=== PATIENT | male | born 1980 | race Caucasian/White ===

== ENCOUNTER 2019-11-15 12:21 | Observation (INO) | payer BC, OTHER ==
[2019-11-15] MEDS ORDERED: KETOROLAC 30 MG/ML 1 ML VIAL IVP STA (12:45)
[2019-11-15] MEDS ORDERED: ASPIRIN 81 MG PO STA (12:55)
--- NOTE | 2019-11-15 13:01 | ED ---
Chest Pain HPI - General Chief Complaint: Chest Pain Stated Complaint: Chest pain, L arm numbness Time Seen by Provider: 11/15/19 12:32 Source: patient, RN notes reviewed Mode of arrival: ambulatory Limitations: no limitations - History of Present Illness Initial Comments: This a 39-year-old male presents emergency Department with chief complaint of chest pain. 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 He states his symptoms worsened patient has developed a fever. Denies any URI symptoms. Patient states she has severe pain in his chest but also in his axillary and groin region. He denies any IV drug use no significant past medical history other than a finger amputation. Patient denies any sick contacts. Patient states that his significant other told him that his eye was rolling back when he was sleeping and she was attempting to wake him up. Patient does not remember this. He denies any leg pain, leg swelling. - Related Data Allergies Allergy/AdvReac Type Severity Reaction Status Date / Time No Known Allergies Allergy Verified 11/15/19 12:30 Review of Systems ROS Statement: Those systems with pertinent positive or pertinent negative responses have been documented in the HPI. ROS Other: All systems not noted in ROS Statement are negative. EKG Findings - EKG Comments: EKG Findings:: EKG performed at 12:37 normal sinus rhythm rate of 94 SC 150 QRS 88 QT/QTC 340/425 is noted inverted P waves in V1 and V2, slight ST abnormality noted Past Medical History Past Medical History: No Reported History History of Any Multi-Drug Resistant Organisms: None Reported Past Surgical History: Orthopedic Surgery Additional Past Surgical History / Comment(s): rt 4th finger amputation Past Psychological History: Anxiety Smoking Status: Current every day smoker Past Alcohol Use History: None Reported Past Drug Use History: None Reported General Exam Limitations: no limitations General appearance: alert, in no apparent distress Head exam: Present: atraumatic, normocephalic, normal inspection Eye exam: Present: normal appearance, PERRL, EOMI. Absent: scleral icterus, conjunctival injection, periorbital swelling ENT exam: Present: normal exam, normal oropharynx, mucous membranes moist, TM's normal bilaterally Neck exam: Present: normal inspection, full ROM. Absent: tenderness, meningismus, lymphadenopathy Respiratory exam: Present: normal lung sounds bilaterally. Absent: respiratory distress, wheezes, rales, rhonchi, stridor Cardiovascular Exam: Present: normal rhythm, tachycardia, normal heart sounds, systolic murmur. Absent: diastolic murmur, rubs, gallop, clicks GI/Abdominal exam: Present: soft, normal bowel sounds. Absent: distended, tenderness, guarding, rebound, rigid Neurological exam: Present: alert, oriented X3 Skin exam: Present: warm, dry, intact, normal color. Absent: rash Course Vital Signs 11/15/19 11/15/19 11/15/19 12:24 13:30 13:50 Temperature 101.5 F H 99.0 F Pulse Rate 103 H 82 Respiratory 20 17 Rate Blood Pressure 148/80 127/66 O2 Sat by Pulse 99 98 Oximetry Chest Pain MDM - MDM 39-year-old presented for chest pain , fever. He has no URI symptoms, flu negative chest x-ray shows evidence of atelectasis. Patient does have elevated white count, CRP. I did concerns of possible infection patient will placed on prophylactic antibiotics lovastatin echo and cardiology consult. Disposition Clinical Impression: Chest pain, Fever Disposition: ADMITTED IP TO THIS HOSP Condition: Fair Referrals: Nonstaff,Physician [REFERRING] - 1-2 days
[2019-11-15 13:10] LABS: Basophils # (A) 0.2 k/uL (0-0.2); Basophils % (A) 1 %; Eosinophils % (A) 0 %; HCT 45.2 % (39.0-53.0); HGB 14.9 gm/dL (13.0-17.5); Lymphocytes # (A) 1.4 k/uL (1.0-4.8); Lymphocytes % (A) 8 %; MCH 30.4 pg (25.0-35.0); MCV 92.1 fL (80.0-100.0); Mean Platelet Volume 7.1; Monocytes # (A) 1.1 k/uL (0-1.0); Monocytes % (A) 6 %; Neutrophils # (A) 15.6 k/uL (1.3-7.7); Neutrophils % (A) 84 %; Platelet Count 247 k/uL (150-450); RDW 13.3 % (11.5-15.5); WBC 18.5 k/uL (3.8-10.6)
--- NOTE | 2019-11-15 13:10 | XR ---
EXAMINATION TYPE: XR chest 2V DATE OF EXAM: 11/15/2019 COMPARISON: NONE TECHNIQUE: PA and lateral views submitted. HISTORY: Chest Pain FINDINGS: The lungs are clear and there is no pneumothorax, pleural effusion, or focal pneumonia. Perihilar s ubsegmental linear changes are noted. No pneumothorax. IMPRESSION: 1. Basilar atelectasis favored over pneumonia..
[2019-11-15 13:19] LABS: ALT 18 U/L (4-49); AST 28 U/L (17-59); African American GFR (CKD) >90 (>60 ml/min/1.73 sqM); Albumin 4.5 g/dL (3.5-5.0); Alkaline Phosphatase 88 U/L (38-126); Anion Gap 8 mmol/L; Blood Urea Nitrogen 14 mg/dL (9-20); C Reactive Protein 60.1 mg/L (<10.0); Calcium 9.2 mg/dL (8.4-10.2); Carbon Dioxide 25 mmol/L (22-30); Chloride 105 mmol/L (98-107); Glucose 100 mg/dL (74-99); Non-African American GFR(CKD) >90 (>60 ml/min/1.73 sqM); Potassium 4.1 mmol/L (3.5-5.1); Sodium 138 mmol/L (137-145); Total Bilirubin 0.6 mg/dL (0.2-1.3); Total Protein 7.5 g/dL (6.3-8.2)
[2019-11-15 13:21] LABS: D-Dimer 0.31 mg/L FEU (<0.60); INR 0.9 (<1.2); Partial Thromboplastin Time 24.8 sec (22.0-30.0); Prothrombin Time 9.8 sec (9.0-12.0)
[2019-11-15] MEDS ORDERED: cefTRIAXone IN SWFI 1,000 MG/10 ML SYRINGE IVP STA (13:52)
[2019-11-15] MEDS ORDERED: VANCOMYCIN IV PER PHARMACY 1 EACH MISC MISCELLANE PRN (13:52)
[2019-11-15] MEDS ORDERED: MORPHINE SULFATE 4 MG/ML SYRINGE IVP STA (13:54)
[2019-11-15] MEDS ORDERED: HEPARIN SODIUM,PORCINE 5,000 UNIT/ML 1 ML VIAL IV ONE (13:56)
[2019-11-15] MEDS ORDERED: NITROGLYCERIN SL TABS 0.4 MG TAB SUBLINGUAL PRN (13:56)
[2019-11-15] MEDS ORDERED: HEPARIN SODIUM,PORCINE 5,000 UNIT/ML 1 ML VIAL IV PRN (13:56)
[2019-11-15] MEDS ORDERED: VANCOMYCIN 1,500 MG in SODIUM CHLORIDE 0.9% 250 ML IVPB STA (13:58)
[2019-11-15] MEDS ORDERED: HEPARIN SOD,PORK IN 0.45% NACL 25,000 UNIT in 0.45% NACL 1 250ML.BAG IV SCH (14:00)
[2019-11-15 14:12] LABS: Erythrocyte Sedimentation Rate 7 mm/hr (0-15)
--- NOTE | 2019-11-15 15:36 | P.HPIM ---
History of Present Illness This is a pleasant 59 years old male with past medical history of stroke, anxiety seated smoker. Because of chest pain. Patient was in the hospital but he didn't like its at [place] so he signed himself out. Patient has multiple p roblems, he is complaining of from numbness in his left face and left arm for 2 days duration with no headache or weakness. Also he said he has been covered with the jenny phlegm and pleuritic-like chest pain on the left side, nonradiating felt like dull increased by deep breathing and coughing associated with some dyspnea but no nausea vomiting. Patient also complains from becoming unresponsive for 2 minutes last night while he was talking to his family, his mother found him unresponsive while she was talking to him, he says that his eyes were closed and he could not remember anything until next day when he woke up and has been told by his mother that she was trying to wake him up and sh aking him but he was unresponsive. Patient denies jerking movements, no urine or bowel incontinence, no tongue biting however his mother told him that his eyes rolled up. Also patient was complaining of 422 days of pain in both armpits and both groins Patient smokes about 7-10 cigarettes per day, no alcohol or illicit drugs. Vitas looks stable. Labs showing leukocytosis of 18.5 K, d-dimer is negative at 0.31, BMP is unremarkable. Liver enzymes not elevated, lipase is negative. The frozen is negative. Chest x-ray: Bibasilar atelectasis, less likely pneumonia. EKG showing normal sinus rhythm with no significant ST-T changes. In the emergency room patient got aspirin, Rocephin and IV vancomycin. Patient also was started on heparin drip Review of Systems CONSTITUTIONAL: no malaise, no fatigue. HEENT: No recent visual problems or hearing problems. Denied any sore throat. CARDIOVASCULAR: No orthopnea, PND, no palpitations PULMONARY: no hemoptysis. GASTROINTESTINAL: No diarrhea, no nausea, no vomiting, no abdominal pain. Normoactive bowel sounds. NEUROLOGICAL: No headaches, no weakness HEMATOLOGICAL: Denies any bleeding or petechiae. GENITOURINARY: Denies any burning micturition, frequency, or urgency. MUSCULOSKELETAL/RHEUMATOLOGICAL: Denies any joint pain, swelling, or any muscle pain. ENDOCRINE: Denies any polyuria or polydipsia. Past Medical History Past Medical History: GERD/Reflux Additional Past Medical History / Comment(s): Pt states he has had heat stroke twice, seasonal allergies. 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 Mother Family Medical History: No Reported History Additional Family Medical History / Comment(s): Mother is healthy Medications and Allergies Home Medications Medication Instructions Recorded Confirmed Type Atorvastatin [Lipitor] 10 mg PO HS 11/15/19 11/15/19 History Ibuprofen [Motrin Ib] 800 mg PO Q6H PRN 11/15/19 11/15/19 History Allergies Allergy/AdvReac Type Severity Reaction Status Date / Time No Known Allergies Allergy Verified 11/15/19 14:05 Physical Exam Vitals: Vital Signs Temp Pulse Pulse Resp BP BP Pulse Ox 11/15/19 14:58 98.3 F 68 18 132/60 96 11/15/19 14:30 80 18 118/62 97 11/15/19 14:00 80 16 122/64 98 11/15/19 13:50 99.0 F 11/15/19 13:30 82 17 127/66 98 11/15/19 12:24 101.5 F H 103 H 20 148/80 99 Intake and Output 11/15/19 11/15/19 11/15/19 06:59 14:59 22:59 Other: Weight 79.152 kg GENERAL: The patient is alert and oriented x3, not in any acute distress. Well developed, well nourished. HEENT: Pupils are round and equally reacting to light. EOMI. No scleral icterus. No conjunctival pallor. Normocephalic, atraumatic. No pharyngeal erythema. No thyromegaly. CARDIOVASCULAR: S1 and S2 present. No murmurs, rubs, or gallops. PULMONARY: Chest is clear to auscultation, no wheezing or crackles. ABDOMEN: Soft, nontender, nondistended, normoactive bowel sounds. No palpable organomegaly. -MUSCULOSKELETAL: No joint swelling or deformity. Tenderness in both inguinal hernia and arm parts with no rash or lesions noted EXTREMITIES: No cyanosis, clubbing, or pedal edema. -NEUROLOGICAL: Tenderness are grossly intact, patient has decreased sensation in his left face and left upper extremity. SKIN: No rashes. No petechiae Results CBC & Chem 7: 11/15/19 12:46 11/15/19 12:46 Labs: Abnormal Lab Results - Last 24 Hours (Table) 11/15/19 11/15/19 Range/Units 12:46 12:46 WBC 18.5 H (3.8-10.6) k/uL Neutrophils # 15.6 H (1.3-7.7) k/uL Monocytes # 1.1 H (0-1.0) k/uL Glucose 100 H (74-99) mg/dL C-Reactive Protein 60.1 H (<10.0) mg/L Assessment and Plan Assessment: Bilateral basal atelectasis, versus pneumonia sepsis secondary to above with fever and leukocytosis period Of unresponsive, rule out seizure versus syncope. We'll going to consult cardiology and neurology service Chest pain, rule out cardiac causes Leukocytosis, patient was counseled he does not want nicotine patch Numbness in his left face and left arm Pain in both armpits and groins Nicotine dependence History of anxiety, not active issue. Plan: This is a pleasant 39 years old male who presents because of chest pain and possible pneumonia. Continue serial troponins and EKG, call cardiology consult. Continue with antibiotics. We'll consult pulmonary. Continue with antibiotics and follow-up culture results. Continue with IV hydration. Also I'll consult senior civil engineer. Continue with aspirin. We will order CT of the head. Neuro check. Check echocardiogram. Patient was counseled about she can low that she'll not to drive in case of syncope or seizure Labs and medication were reviewed.. Continue same treatment. Continue with symptomatic treatment. Resume home medication. Monitor lytes and vitals. DVT and GI prophylaxis. Further recommendations of the clinical course of the patient DVT prophylaxis: Subcutaneous heparin GI Prophylaxis: Pepcid PT/OT: Pending Prognosis is guarded
--- NOTE | 2019-11-15 16:32 | CT ---
EXAMINATION TYPE: CT brain wo con DATE OF EXAM: 11/15/2019 COMPARISON: None HISTORY: 39-year-old male numbness in face and left arm TECHNIQUE: Examination was done in axial plane without intravenous contrast. Coronal and sagittal r econstructions performed. CT DLP: 1040.4 mGycm Automated exposure control for dose reduction was used. FINDINGS: There is no evidence of acute intracranial hemorrhage, acute ischemic changes, mass, mass-effect, or extra-axial fluid collection. There is no effacement of cerebral sulci or basal subarachnoid cister ns. There is no hydrocephalus. There is no midline shift. Zavaleta-white matter distinction is preserv ed. Paranasal sinuses and mastoid air cells are well pneumatized. Visualized orbits and globes appear int act. IMPRESSION: No acute intracranial abnormality seen.
[2019-11-15] MEDS: SODIUM CHLORIDE 0.9% 1,000 ML IV SCH (16:57)
[2019-11-15] MEDS: MORPHINE SULFATE 2 MG/ML SYRINGE IVP PRN ×2 (16:58→20:42)
--- NOTE | 2019-11-15 18:35 | P.CNNES ---
History of Present Illness Consult date: 11/15/19 Requesting physician: Mukul E Sheet Reason for Consult: Numbness in face and arm and possible syncope History of Present Illness: Patient is a 39-year-old male, who is otherwise completely healthy, states that 3 days ago he developed numbness in the left side of the face, and the left arm. He also noticed decreased special services director on the left. Denies any symptoms in the lower extremities on the right upper limb. No slurred speech or problem with the vision. He went to [facility], where he stayed for 2-1/2 days. Patient states that they did not do much testing except for "pumping medications". He signed out again medical advice, went home. Last night he started having pain in bilateral axillary region, almost as if someone has stuck fingers in his armpit and trying to lift him up. He also has developed pain in the left groin region, almost as if the lymph glands are swollen although there is nothing visible. No rash. Patient also had a syncopal spell last night, when he was sleeping at around 2 AM, his heard him moaning. She tried to wake him up, but his eyes rolled up in his head and he was unresponsive for about 30 seconds. When she asked, if he was fine, he said he was, although he does not remember any of this episode or conversation last night. This morning patient has developed fever. His felt that his heart was pounding really bad last night. Patient also complains of pain in the lower thoracic spine region since yesterday. Patient smokes 7-10 cigarettes per day since he was age 15. Denies any alcohol or drugs. Denies any marijuana. 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 Patient had undergone computed tomography scan of the head, which is normal. EKG showed normal sinus rhythm. Chest x-ray showed basilar atelectasis favored over pneumonia. Patient has a flu test negative. Patient denies any travel outside country, tick bite, rash or cat scratch. Review of Systems As mentioned above in detail. Past Medical History Past Medical History: GERD/Reflux Additional Past Medical History / Comment(s): Pt states he has had heat stroke twice, seasonal allergies. 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 Mother Family Medical History: No Reported History Additional Family Medical History / Comment(s): Mother is healthy Medications and Allergies Home Medications Medication Instructions Recorded Confirmed Type Atorvastatin [Lipitor] 10 mg PO HS 11/15/19 11/15/19 History Ibuprofen [Motrin Ib] 800 mg PO Q6H PRN 11/15/19 11/15/19 History Allergies Allergy/AdvReac Type Severity Reaction Status Date / Time No Known Allergies Allergy Verified 11/15/19 14:05 Physical Examination - Vital Signs Vital Signs: Vital Signs Temp Pulse Pulse Resp BP BP Pulse Ox 11/15/19 14:58 98.3 F 68 18 132/60 96 11/15/19 14:30 80 18 118/62 97 11/15/19 14:00 80 16 122/64 98 11/15/19 13:50 99.0 F 11/15/19 13:30 82 17 127/66 98 11/15/19 12:24 101.5 F H 103 H 20 148/80 99 Intake and Output 11/15/19 11/15/19 11/15/19 06:59 14:59 22:59 Intake Total 420 Balance 420 Intake: Oral 420 Other: Voiding Method Toilet Weight 79.152 kg On examination patient's mental status, speech and language functions are normal. Attention and concentration fund of knowledge is adequate. On cranial examination pupils are round and reacting to light, visual roberts are full on confrontation, extraocular muscles intact. No Jhonathan syndrome. Face is symmetric, tongue protrudes the midline. Palatal elevation and sensation normal. On muscle strength testing, there is no pronator drift and the strength is normal in the arms and legs except for left special services director, which is 4+ as compared to the right. He has previously amputated right little finger from previous work- related accident. Reflexes are 2+ and plantars downgoing. Sensory touch is equal, although patient appears to be very hypersensitive in bilateral axillary region, and groin region. No ataxia for [id number] testing. Tone and bulk of muscles normal. Palpation of the axillary region was extremely tender, but revealed no obvious lumps, but the exam was limited because of tenderness. Gait normal. No carotid bruit or murmur. Results - Laboratory Findings CBC and BMP: 11/15/19 12:46 11/15/19 12:46 Abnormal Lab Findings: Abnormal Labs 11/15/19 11/15/19 12:46 12:46 WBC 18.5 H Neutrophils # 15.6 H Monocytes # 1.1 H Glucose 100 H C-Reactive Protein 60.1 H Assessment and Plan Assessment: * 39-year-old male with left facial brachial paresthesia with left hand weakness of unclear etiology. Rule out demyelinating disease. * New onset hypersensitivity and pain in the bilateral axillary and groin region, unclear etiology. Patient also has leukocytosis and fever 101.5. Possible infectious/inflammatory process. * Syncopal spell Plan: * We will perform MRI of the brain with and without contrast to rule out CVA or demyelinating disease. * EEG to rule out any epileptiform activity. * Suggest infectious disease consultation. * Agree with the cardiology consultation. * Blood cultures pending. Patient started on vancomycin. * Neurology will continue to follow.
[2019-11-15] MEDS ORDERED: ATORVASTATIN 10 MG TAB PO SCH (21:00)
[2019-11-15] MEDS ORDERED: IBUPROFEN 800 MG TAB PO STA (21:49)
[2019-11-16] MEDS: MORPHINE SULFATE 2 MG/ML SYRINGE IVP PRN ×2 (00:26→05:45)
[2019-11-16] MEDS: VANCOMYCIN 1,500 MG in SODIUM CHLORIDE 0.9% 250 ML IVPB SCH ×4 (00:26→22:54)
[2019-11-16 03:50] LABS: Basophils # (A) 0.1 k/uL (0-0.2); Basophils % (A) 1 %; Eosinophils # (A) 0.3 k/uL (0-0.7); Eosinophils % (A) 3 %; HCT 41.4 % (39.0-53.0); HGB 13.8 gm/dL (13.0-17.5); Lymphocytes % (A) 25 %; MCH 31.1 pg (25.0-35.0); MCHC 33.4 g/dL (31.0-37.0); MCV 93.2 fL (80.0-100.0); Mean Platelet Volume 6.7; Monocytes # (A) 0.8 k/uL (0-1.0); Monocytes % (A) 7 %; Neutrophils # (A) 7.6 k/uL (1.3-7.7); Neutrophils % (A) 63 %; Platelet Count 240 k/uL (150-450); RBC 4.44 m/uL (4.30-5.90); RDW 13.3 % (11.5-15.5); WBC 12.2 k/uL (3.8-10.6)
[2019-11-16 03:58] LABS: African American GFR (CKD) >90 (>60 ml/min/1.73 sqM); Anion Gap 5 mmol/L; Blood Urea Nitrogen 15 mg/dL (9-20); Calcium 8.4 mg/dL (8.4-10.2); Carbon Dioxide 27 mmol/L (22-30); Chloride 107 mmol/L (98-107); Cholesterol 145 mg/dL (<200); Glucose 127 mg/dL (74-99); HDL Cholesterol 47 mg/dL (40-60); LDL Cholesterol,Calculated 67 mg/dL (0-99); Non-African American GFR(CKD) >90 (>60 ml/min/1.73 sqM); Sodium 139 mmol/L (137-145); Triglycerides 154 mg/dL (<150)
[2019-11-16] MEDS: SODIUM CHLORIDE 0.9% 1,000 ML IV SCH ×2 (04:07→19:00)
[2019-11-16] MEDS ORDERED: ASPIRIN 325 MG TAB PO SCH (09:00)
--- NOTE | 2019-11-16 11:28 | ECHOF ---
Referral Reason:Chest pain MEASUREMENTS -------- HEIGHT: 182.9 cm WEIGHT: 74.4 kg BP: RVIDd: 3.1 cm (< 3.3) IVSd: 1.2 cm (0.6 - 1.1) LVIDd: 4.1 cm (3.9 - 5.3) LVPWd: 1.1 cm (0.6 - 1.1) IVSs: 1.6 cm LVIDs: 2.4 cm LVPWs: 1.9 cm LA Diam: 3.1 cm (2.7 - 3.8) LAESV Index (A-L): 19.49 ml/m Ao Diam: 3.0 cm (2.0 - 3.7) AV Cusp: 1.8 cm (1.5 - 2.6) LA Diam: 3.3 cm (2.7 - 3.8) MV EXCURSION: 18.829 mm (> 18.000) MV EF SLOPE: 96 mm/s (70 - 150) EPSS: 0.3 cm MV E Ang: 0.86 m/s MV DecT: 274 ms MV A Ang: 0.53 m/s MV E/A Ratio: 1.62 RAP: 5.00 mmHg RVSP: 28.31 mmHg FINDINGS -------- Sinus rhythm. This was a technically good study. The left ventricular size is normal. There is mild concentric left ventricular hypertrophy. Overa ll left ventricular systolic function is normal with, an EF between 55 - 60 %. The right ventricle is normal in size. The left atrial size is normal. Normal LA size by volume 22+/-6 ml/m2. The right atrial size is normal. The aortic valve is trileaflet, and appears structurally normal. No aortic stenosis or regurgitation. Mild mitral annular calcification present. Mild mitral regurgitation is present. Mild tricuspid regurgitation present. Right ventricular systolic pressure is normal at < 35 mmHg. There is no evidence of pulmonary hypertension. There is no pulmonic regurgitation present. The aortic root size is normal. There is no pericardial effusion. CONCLUSIONS -------- 1. Sinus rhythm. 2. This was a technically good study. 3. The left ventricular size is normal. 4. There is mild concentric left ventricular hypertrophy. 5. Overall left ventricular systolic function is normal with, an EF between 55 - 60 %. 6. The right ventricle is normal in size. 7. The left atrial size is normal. 8. Normal LA size by volume 22+/-6 ml/m2. 9. The right atrial size is normal. 10. The aortic valve is trileaflet, and appears structurally normal. No aortic stenosis or regurgitat ion. 11. Mild mitral annular calcification present. 12. Mild mitral regurgitation is present. 13. Mild tricuspid regurgitation present. 14. Right ventricular systolic pressure is normal at < 35 mmHg. 15. There is no evidence of pulmonary hypertension. 16. There is no pulmonic regurgitation present. 17. The aortic root size is normal. 18. There is no pericardial effusion. COUNCIL MEMBER: Nazanin Arredondo RDCS
--- NOTE | 2019-11-16 11:31 | P.CRDCN ---
History of Present Illness History of present illness: HISTORY OF PRESENTING ILLNESS This is a pleasant 39-year-old male past medical history significant for chronic nicotine dependence. He denies prior history of coronary artery disease, hypertension or dyslipidemia. He states he was recently started on lipitor for unknown reason and has not yet taken this medication. We have been asked to see in consultation for chest pain. He presented to the hospital yesterday with symptoms of pain in the chest on the left side. He has been e xperiencing this pain for the last 3-4 days that is worse with breathing at times. He has radiation down the left arm and into the left cheek. He states his left arm and face are numb and continue to be numb. He denies shortness of breath, dizziness, nausea, vomiting or palpitations. He denies nasal drainage, throat pain or recent upper respiratory illness. He also was seen at [facility] for this pain but left AMA. When he presented to the ER he had a temperature of 101.5F. His pain is relieved by morphine and motrin. DIAGNOSTICS EKG reveals sinus mechanism, left atrial enlargement and poor R-wave progression. Chest xray basilar atelectasis. CT brain no acute intracranial process. Laboratory reviewed, WBC on admission 18.5 repeat today 12.2, hgb 13.8. plt 240, d-dimer 0.31, sodium 139, potassium 4.0, creatinine 0.83, cardiac enzymes negative x3, CRP 60.1, NTproBNP 88, LDL 67, procalcitonin 0.1. No daily REVIEW OF SYSTEMS At the time of my exam: CONSTITUTIONAL: Denies fever or chills. CARDIOVASCULAR: Denies chest pain, shortness of breath, orthopnea, PND or palpitations. RESPIRATORY: Denies cough. GASTROINTESTINAL: Denies abdominal pain, diarrhea, constipation, nausea or vomiting. MUSCULOSKELETAL: Denies myalgias. NEUROLOGIC: Denies numbness, tingling or weakness. ENDOCRINE: Denies fatigue, weight change, polydipsia or polyurina. GENITOURINARY: Denies burning, hematuria or urgency with micturation. HEMATOLOGIC: Denies history of anemia or bleeding. PHYSICAL EXAMINATION Blood pressure 110/63 heart rate 57 afebrile and maintaining oxygen saturation on room air. CONSTITUTIONAL: No apparent distress. HEENT: Head is normocephalic. Pupils are equal, round. Sclerae anicteric. Mucous membranes of the mouth are moist. No JVD. No carotid bruit. CHEST EXAMINATION: Lungs are clear to auscultation. No chest wall tenderness is noted on palpation or with deep breathing. HEART EXAMINATION: Regular rate and rhythm. S1, S2 heard. No murmurs, gallops or rub. ABDOMEN: Soft, nontender. Positive bowel sounds. EXTREMITIES: 2+ peripheral pulses, no lower extremity edema and no calf tenderness. NEUROLOGIC EXAMINATION: Patient is awake, alert and oriented x3. ASSESSMENT Chest pain, pleuritic. Atypical for angina. An acute event has been ruled out. Febrile illness Leukocytosis PLAN Discontinue heparin infusion. Recommend ibuprofen 400 mg TID with daily protonix. Echocardiogram has been obtained and will be reviewed for evidence of pericarditis/pericardial effusion. Recommend blood cultures and consider infectious disease consultation. Smoking cessation recommended. Discontinue atorvastatin. Thank you kindly for this consultation. Nurse Practitioner note has been reviewed, I agree with a documented findings and plan of care. Patient was seen and examined. Past Medical History Past Medical History: GERD/Reflux Additional Past Medical History / Comment(s): Pt states he has had heat stroke twice, seasonal allergies. 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 Mother Family Medical History: No Reported History Additional Family Medical History / Comment(s): Mother is healthy Medications and Allergies Home Medications Medication Instructions Recorded Confirmed Type Atorvastatin [Lipitor] 10 mg PO HS 11/15/19 11/15/19 History Ibuprofen [Motrin Ib] 800 mg PO Q6H PRN 11/15/19 11/15/19 History Allergies Allergy/AdvReac Type Severity Reaction Status Date / Time No Known Allergies Allergy Verified 11/15/19 14:05 Physical Exam Vitals: Vital Signs Temp Pulse Pulse Pulse Resp BP BP 11/16/19 07:20 97.3 F L 57 L 18 110/63 11/16/19 03:56 97.9 F 59 L 16 109/65 11/15/19 23:27 98.5 F 97 17 134/72 11/15/19 19:10 98.7 F 73 17 103/62 11/15/19 14:58 98.3 F 68 18 132/60 11/15/19 14:30 80 18 118/62 11/15/19 14:00 80 16 122/64 11/15/19 13:50 99.0 F 11/15/19 13:30 82 17 127/66 11/15/19 12:24 101.5 F H 103 H 20 148/80 Pulse Ox 11/16/19 07:20 98 11/16/19 03:56 98 11/15/19 23:27 98 11/15/19 19:10 98 11/15/19 14:58 96 11/15/19 14:30 97 11/15/19 14:00 98 11/15/19 13:50 11/15/19 13:30 98 11/15/19 12:24 99 Intake and Output 11/15/19 11/16/19 11/16/19 22:59 06:59 14:59 Intake Total 487.911 Balance 487.911 Intake: Intake, IV Titration 67.911 Amount Heparin Sod,Pork in 0.45% 67.911 NaCl 25,000 unit In 0.45 % NaCl 1 250ml.bag @ 12 UNITS/KG/HR 9.498 mls/hr IV .Q24H [facility] Rx#: [id number] Oral 420 Other: Voiding Method Toilet Toilet # Voids 1 1 Results 11/16/19 03:22 11/16/19 03:22 Cardiac Enzymes 11/15/19 11/15/19 11/15/19 Range/Units 12:46 12:46 19:57 AST 28 (17-59) U/L Troponin I <0.012 <0.012 (0.000-0.034) ng/mL 11/16/19 Range/Units 00:33 AST (17-59) U/L Troponin I <0.012 (0.000-0.034) ng/mL Coagulation 11/15/19 11/15/19 11/16/19 Range/Units 12:46 19:57 03:22 PT 9.8 (9.0-12.0) sec APTT 24.8 30.1 H 51.2 H (22.0-30.0) sec Lipids 11/16/19 Range/Units 03:22 Triglycerides 154 H (<150) mg/dL Cholesterol 145 (<200) mg/dL HDL Cholesterol 47 (40-60) mg/dL CBC 11/15/19 11/16/19 Range/Units 12:46 03:22 WBC 18.5 H 12.2 H (3.8-10.6) k/uL RBC 4.90 4.44 (4.30-5.90) m/uL Hgb 14.9 13.8 (13.0-17.5) gm/dL Hct 45.2 41.4 (39.0-53.0) % Plt Count 247 240 (150-450) k/uL Comprehensive Metabolic Panel 11/15/19 11/16/19 Range/Units 12:46 03:22 Sodium 138 139 (137-145) mmol/L Potassium 4.1 4.0 (3.5-5.1) mmol/L Chloride 105 107 (98-107) mmol/L Carbon Dioxide 25 27 (22-30) mmol/L BUN 14 15 (9-20) mg/dL Creatinine 0.93 0.83 (0.66-1.25) mg/dL Glucose 100 H 127 H (74-99) mg/dL Calcium 9.2 8.4 (8.4-10.2) mg/dL AST 28 (17-59) U/L ALT 18 (4-49) U/L Alkaline Phosphatase 88 (38-126) U/L Total Protein 7.5 (6.3-8.2) g/dL Albumin 4.5 (3.5-5.0) g/dL Current Medications Generic Name Dose Route Start Last Admin Trade Name Freq PRN Reason Stop Dose Admin Aspirin 325 mg 11/16/19 09:00 Aspirin PO DAILY [facility] Atorvastatin Calcium 10 mg 11/15/19 21:00 11/15/19 20:44 Lipitor PO Not Given HS [facility] Heparin Sodium (Porcine) 0 unit 11/15/19 13:56 11/15/19 21:45 Heparin IV 3,950 unit Q6HR PRN Administration Low PTT Protocol Heparin Sodium/Sodium Chloride 250 mls @ 9.498 mls/hr 11/15/19 14:00 11/15/19 21:39 25,000 unit/ Sodium Chloride IV 15 units/kg/hr .Q24H [facility] 11.873 mls/hr Titration Protocol 12 UNITS/KG/HR Vancomycin HCl 1,500 mg/ 250 mls @ 125 mls/hr 11/16/19 00:00 11/16/19 00:26 Sodium Chloride IVPB 125 mls/hr Q8HR [facility] Administration Sodium Chloride 1,000 mls @ 75 mls/hr 11/15/19 15:30 11/16/19 04:07 Saline 0.9% IV 75 mls/hr .[id number] [facility] Administration Ceftriaxone Sodium 1 gm/ 50 mls @ 100 mls/hr 11/16/19 14:00 Sodium Chloride IVPB Q24H [facility] Morphine Sulfate 2 mg 11/15/19 16:47 11/16/19 05:45 Morphine Sulfate (Inj) IVP 2 mg Q4H PRN Administration Pain/Discomfort Nitroglycerin 0.4 mg 11/15/19 13:56 Nitrostat SUBLINGUAL Q5M PRN Chest Pain Intake and Output 11/15/19 11/16/19 11/16/19 22:59 06:59 14:59 Intake Total 487.911 Balance 487.911 Intake: Intake, IV Titration 67.911 Amount Heparin Sod,Pork in 0.45% 67.911 NaCl 25,000 unit In 0.45 % NaCl 1 250ml.bag @ 12 UNITS/KG/HR 9.498 mls/hr IV .Q24H [facility] Rx#: [id number] Oral 420 Other: Voiding Method Toilet Toilet # Voids 1 1 11/16/19 03:22 11/16/19 03:22
--- NOTE | 2019-11-16 11:36 | MR ---
EXAMINATION TYPE: MR brain wo/w con DATE OF EXAM: 11/16/2019 COMPARISON: CT brain from yesterday. HISTORY: Left facial brachial numbness and facial numbness, Syncope TECHNIQUE: Multiplanar, multisequence images of the brain and brainstem is performed without and with IV contras t, utilizing 7.5 mL intravenous Gadavist . FINDINGS: Diffusion weighted images demonstrate no evidence of a recent infarct or other diffusion ab normality. There is no worrisome extra-axial fluid collection. The ventricular system and cisternal spaces are normal in size and appearance. The brain volume is age appropriate. Scattered foci of T2 hyperintensity is seen throughout the white matter bilaterally. Approximately 20-30 small scattered lesions are seen. Lesions most prominent in the superficial regions. Lesions are nonspecific in appea yessy and distribution. Midline structures demonstrate normal morphology. The craniocervical junction appears within normal limits. Post contrast images demonstrate no abnormal enhancement. The dural venous sinuses appear pa tent. The visualized sinuses are clear and the globes are intact. IMPRESSION: 1. No evidence of a recent infarct. 2. [id number]-rl-[id number] nonspecific white matter changes somewhat pronounced for patient's chronologic ag e. Demyelinating disease needs to be excluded in patient of this age though distribution is not typic al.
[2019-11-16] MEDS: IBUPROFEN 400 MG TAB PO SCH ×3 (11:38→19:56)
[2019-11-16] MEDS: PANTOPRAZOLE 40 MG TABLET PO SCH ×2 (11:39→18:06)
--- NOTE | 2019-11-16 11:49 | P.CNPUL ---
History of Present Illness Consult date: 11/16/19 Reason for consult: dyspnea, chest pain, other Chief complaint: Left-sided chest and axillary numbness and paresthesia, fever History of present illness: 39-year-old white male patient who was recently hospitalized at [facility] 3-4 days ago for complaints of left-sided chest pain, paresthesias, left facial numbness, and numbness and paresthesias involving left arm. The results of their workup is not available to us at this time, but patient was frustrated that it was taking too long for him to be seen by cardiology, he felt that he was just getting medications and not much was being done there so he left AGAINST MEDICAL ADVICE. The night before yesterday patient apparently was sleeping at home, and his heard him making strange noises, she tried to wake him but he wouldn't wake up and his eyes were rolled in the back of his head for a period of 30 seconds, to which he started responding again, but he continued to have left-sided chest numbness, facial numbness on the left side neck numbness, discomfort in his bilateral axillary areas, groin. He describes the discomfort as numbness, needle poking-type sensation. He admitted to having some chills at home, but denied any cough, denied any congestion, was febrile on presentation with a temp of 101.5F, for the rest of his hospital stay he has been afebrile. His lungs are clear, his chest x-ray showed basilar atelectasis favored over pneumonia. On initial presentation patient did have elevation of his white count at 18.5, hemoglobin was 14.9, correlation profile was within normal limits, d-dimer was negative at 0.31, electrolytes and renal profile were unremarkable, proBNP is 88, through troponins were less than 0.012, pro calcitonin level is negative at 0.10 resting absence of a bacterial infection, lipase and LFTs are within normal limits, influenza screen was negative. Brain CT was negative, neurology is following. He was started on empiric antibiotics in the form of Rocephin and vancomycin, he is receiving Motrin, and morphine for pain control, he seems to be quite comfortable at rest, no evidence of respira tory difficulty, his been afebrile, lung sounds are clear, he is a current smoker, 7 a pack a day, for 25 years, but denies any history of chronic lung disease, other medical history includes anxiety for which the patient is on Ativan. Patient gives history of family history of sarcoma, and patient's father had a cardiac sarcoma tumor that was surgically resected. Patient's aunt or uncle also have history of sarcoma of unknown kind. The vital signs are stable, pulse ox is 100% on room air, patient is afebrile, hemodynamically stable. Review of Systems All systems: negative Constitutional: Denies chills, Denies fever Eyes: denies blurred vision, denies pain Ears, nose, mouth and throat: Denies headache, Denies sore throat Cardiovascular: Reports chest pain, Denies shortness of breath Respiratory: Reports dyspnea, Denies cough Gastrointestinal: Denies abdominal pain, Denies diarrhea, Denies nausea, Denies vomiting Musculoskeletal: Denies myalgias Integumentary: Denies pruritus, Denies rash Neurological: Reports numbness, Reports paresthesias, Denies weakness Psychiatric: Denies anxiety, Denies depression Endocrine: Denies fatigue, Denies weight change Past Medical History Past Medical History: GERD/Reflux Additional Past Medical History / Comment(s): Pt states he has had heat stroke twice, seasonal allergies. 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 Mother Family Medical History: No Reported History Additional Family Medical History / Comment(s): Mother is healthy Medications and Allergies Home Medications Medication Instructions Recorded Confirmed Type Atorvastatin [Lipitor] 10 mg PO HS 11/15/19 11/15/19 History Ibuprofen [Motrin Ib] 800 mg PO Q6H PRN 11/15/19 11/15/19 History Allergies Allergy/AdvReac Type Severity Reaction Status Date / Time No Known Allergies Allergy Verified 11/15/19 14:05 Physical Exam Vitals: Vital Signs Temp Pulse Pulse Pulse Resp BP BP 11/16/19 08:00 59 L 57 L 18 11/16/19 07:20 97.3 F L 57 L 18 110/63 11/16/19 03:56 97.9 F 59 L 16 109/65 11/15/19 23:27 98.5 F 97 17 134/72 11/15/19 19:10 98.7 F 73 17 103/62 11/15/19 14:58 98.3 F 68 18 132/60 11/15/19 14:30 80 18 118/62 11/15/19 14:00 80 16 122/64 11/15/19 13:50 99.0 F 11/15/19 13:30 82 17 127/66 11/15/19 12:24 101.5 F H 103 H 20 148/80 Pulse Ox 11/16/19 08:00 11/16/19 07:20 98 11/16/19 03:56 98 11/15/19 23:27 98 11/15/19 19:10 98 11/15/19 14:58 96 11/15/19 14:30 97 11/15/19 14:00 98 11/15/19 13:50 11/15/19 13:30 98 11/15/19 12:24 99 Intake and Output 11/15/19 11/16/19 11/16/19 22:59 06:59 14:59 Intake Total 487.911 Balance 487.911 Intake: Intake, IV Titration 67.911 Amount Heparin Sod,Pork in 0.45% 67.911 NaCl 25,000 unit In 0.45 % NaCl 1 250ml.bag @ 12 UNITS/KG/HR 9.498 mls/hr IV .Q24H [facility] Rx#: [id number] Oral 420 Other: Voiding Method Toilet Toilet Toilet # Voids 1 1 GENERAL EXAM: Alert, very pleasant 39-year-old white male, with a regular pulse oximetry 100%, comfortable in no apparent distress. HEAD: Normocephalic/atraumatic. EYES: Normal reaction of pupils, equal size. Conjunctiva pink, sclera white. NOSE: Clear with pink turbinates. THROAT: No erythema or exudates. NECK: No masses, no JVD, no thyroid enlargement, no adenopathy. CHEST: No chest wall deformity. Symmetrical expansion. LUNGS: Equal air entry with no crackles, wheeze, rhonchi or dullness. CVS: Regular rate and rhythm, normal S1 and S2, no gallops, no murmurs, no rubs ABDOMEN: Soft, nontender. No hepatosplenomegaly, normal bowel sounds, no guarding or rigidity. EXTREMITIES: No clubbing, no edema, no cyanosis, 2+ pulses and upper and lower extremities. MUSCULOSKELETAL: Muscle strength and tone normal. SPINE: No scoliosis or deformity SKIN: No rashes CENTRAL NERVOUS SYSTEM: Alert and oriented -3. tone is normal in all 4 extremities. Patient is complaining of numbness, and paresthesias involving left chest, left axillary area, left arm and left neck area PSYCHIATRIC: Alert and oriented -3. Appropriate affect. Intact judgment and insight. Results - Laboratory Findings CBC and BMP: 11/16/19 03:22 11/16/19 03:22 PT/INR, D-dimer PT 9.8 sec (9.0-12.0) 11/15/19 12:46 INR 0.9 (<1.2) 11/15/19 12:46 D-Dimer 0.31 mg/L FEU (<0.60) 11/15/19 12:46 Abnormal lab findings: Abnormal Labs 11/15/19 11/15/19 11/15/19 12:46 12:46 12:46 WBC 18.5 H Neutrophils # 15.6 H Monocytes # 1.1 H APTT Glucose 100 H C-Reactive Protein 60.1 H Triglycerides Procalcitonin 0.10 H 11/15/19 11/16/19 11/16/19 19:57 03:22 03:22 WBC 12.2 H Neutrophils # Monocytes # APTT 30.1 H Glucose 127 H C-Reactive Protein Triglycerides 154 H Procalcitonin 11/16/19 03:22 WBC Neutrophils # Monocytes # APTT 51.2 H Glucose C-Reactive Protein Triglycerides Procalcitonin - Diagnostic Findings Chest x-ray: report reviewed, image reviewed Additional studies: EKG, brain CT, echocardiogram Assessment and Plan Plan: Assessment: #1. Numbness paresthesias involving left face, left neck, left chest and left axillary left arm area of unknown etiology #2. Febrile illness of unknown etiology, chest x-ray showed atelectasis favored over pneumonia and pro-calcitonin level is low at 0.10 #3. Recent hospitalization 4 days ago at [facility] for the same symptoms mentioned above and patient left AMA #4. Chronic nicotine dependence, half a pack a day for 25 years #5. Anxiety Plan: Patient still has left chest pain paresthesias and numbness, as well as his left neck, left arm and left axillary area. No cough, no congestion, no hemoptysis, no lower extremity swelling, d-dimer was negative, pro-calcitonin is negative,he has been afebrile, patient continues on empiric antibiotics, blood cultures sent. Echocardiogram has been reviewed, patient has been seen by cardiology and neurology, MRI of the brains pending, chest x-ray showed atelectasis favored over pneumonia, no cough, no wheezing, no upper respiratory symptoms. Patient is receiving Toradol, and narcotics for his chest pain with effect. I performed a history & physical examination of the patient and discussed their management with my nurse practitioner, Trina Moreau. I reviewed the nurse practitioner's note and agree with the documented findings and plan of care. Lung sounds are positive for clear breath sounds. The findings and the impression was discussed with the patient. I attest to the documentation by the nurse practitioner. Time with Patient: Greater than 30
--- NOTE | 2019-11-16 16:26 | EEG ---
ELECTROENCEPHALOGRAM REPORT DATE OF SERVICE: 11/16/2019. PREAMBLE: This is a 39-year-old male with syncope versus seizure. EEG FINDINGS: A routine 21-channel awake digital EEG recording was accomplished utilizing the 10/20 international system with bipolar and referential montages. The background consists of well developed, well regulated, moderate-voltage activity in 9 Hz alpha. Background is posterior-dominant and reactive to eye opening and closing. Photic driving response was not seen. Drowsiness was seen with appearance of bilaterally symmetric theta frequency rhythm. Deeper stages of sleep were not seen. No focal or generalized epileptiform activity was seen. IMPRESSION: This is a normal awake and drowsy EEG. No focal lateralized or epileptiform activity was seen. MMODL / IJN: [id number] /
--- NOTE | 2019-11-16 17:01 | P.PN ---
Subjective Progress Note Date: 11/16/19 Patient states he is feeling much better. Denies any new neurological symptoms. He continues to have numbness of the left facial brachial region. States the pain in the axillary region bilaterally and right groin region have much improved. He rates his pain about 6 in the right axillary region, 3-4 in the left axillary region and 5 in the right groin region. Strength of the left hand has improved. Patient has been started on vancomycin. He is now afebrile and white cells are improving. Patient's ESR is normal 7, CRP elevated 60.1/10. Troponin negative. Liver panel normal renal functions normal. Electrolytes normal. White cells has improved 12.2 with hemoglobin 13.8. CK is normal 88. Objective - Vital Signs Vital signs: Vital Signs Temp 98.2 F 11/16/19 16:00 Pulse 76 11/16/19 16:00 Resp 18 11/16/19 16:00 BP 133/74 11/16/19 16:00 Pulse Ox 98 11/16/19 16:00 Intake & Output 11/15/19 11/16/19 11/16/19 18:59 06:59 18:59 Intake Total 420 67.911 Balance 420 67.911 Weight 79.152 kg Intake: Intake, IV Titration 67.911 Amount Heparin Sod,Pork in 0.45% 67.911 NaCl 25,000 unit In 0.45 % NaCl 1 250ml.bag @ 12 UNITS/KG/HR 9.498 mls/hr IV .Q24H [facility] Rx#: [id number] Oral 420 Other: Voiding Method Toilet Toilet Toilet # Voids 1 3 - Exam Patient's mental status, speech and language functions are normal. Cranial nerves are significant for only left facial numbness for touch and temperature. 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 Rest of the motor examination is normal. Reflexes are 1+ to 2 and plantars downgoing. Patient has numbness of the left arm from the fingertips up to the shoulder. The sensation is normal in the chest region for touch and temperature. No ataxia. - Labs CBC & Chem 7: 11/16/19 03:22 11/16/19 03:22 Labs: Abnormal Lab Results - Last 24 Hours (Table) 11/15/19 11/15/19 11/16/19 Range/Units 12:46 19:57 03:22 WBC 12.2 H (3.8-10.6) k/uL APTT 30.1 H (22.0-30.0) sec Glucose (74-99) mg/dL Triglycerides (<150) mg/dL Procalcitonin 0.10 H (0.02-0.09) ng/mL 11/16/19 11/16/19 Range/Units 03:22 03:22 WBC (3.8-10.6) k/uL APTT 51.2 H (22.0-30.0) sec Glucose 127 H (74-99) mg/dL Triglycerides 154 H (<150) mg/dL Procalcitonin (0.02-0.09) ng/mL Microbiology - Last 24 Hours (Table) 11/15/19 12:46 Blood Culture - Preliminary Blood No Growth after 24 hours Assessment and Plan Assessment: * 39-year-old male with left facial brachial numbness with left hand weakness of unclear etiology. Rule out demyelinating disease. Rule out ADEM. * New onset hypersensitivity and pain in the bilateral axillary and groin region, unclear etiology. Patient also has leukocytosis and fever 101.5 at presentation. Possible infectious/inflammatory process. * Syncopal spell Plan: * MRI of the brain with and without contrast revealed no acute infarct. Mild to moderate nonspecific white matter changes somewhat pronounced for patient's chronological age. Demyelinating disease needs to be excluded in the patient of this age, though distribution is not typical. * EEG was normal with no epileptiform activity. * Await infectious disease consultation. * We will check CHEO, RPR, antiphospholipid antibodies, lupus anticoagulants, Lyme titer, angiotensin I converting enzyme level, HIV. * Neurology coverage is not available on the weekend. If patient is discharged, then patient definitely needs to be seen by neurologist within 1-2 weeks. Patient may need repeat MRI of the brain to make sure the white matter lesions are not progressing or developing ADEM.
--- NOTE | 2019-11-16 17:41 | CONS ---
CONSULTATION DATE OF SERVICE: 11/16/2019 REASON FOR CONSULTATION: Fever. HISTORY OF PRESENT ILLNESS: The patient is a 39-year-old male who presented to the ER at [facility] yesterday with the chief complaint of chest pain. The patient apparently was evaluated for the same symptom last week at [facility], and the patient apparently left AGAINST MEDICAL ADVICE. The patient said that when the chest pain started, he was not doing anything; it was more of a sudden onset of left- sided chest pain. He was describing it to be sharp and almost 10/10 with associated numbness to the left side of the face and the left arm. The patient denies having any nausea, no vomiting. No shortness of breath associated with it. No cough or any sputum production. No abdominal pain. No diarrhea or any urinary symptoms. With these symptoms, the patient presented to the [facility] ER yesterday. The patient did have a chest x-ray initially that shows basilar atelectasis favored or pneumonia. The patient did have an echocardiogram that was reported negative for any effusion. The patient did have a fever of 101.5 degrees Fahrenheit on presentation to the hospital. However, the patient was not tachycardic. The patient's blood work did show a hemoglobin of 14.9, white count 18.5, which is down to 12.2 this morning. His creatinine was normal and his liver enzymes were normal. Lactic acid was 0.9. The patient did have elevated CRP, though sedimentation rate was normal. Procalcitonin level was 0.10. Blood culture has been obtained which is currently pending. The patient has been started on vancomycin and Rocephin. I was asked to see the patient this afternoon for further management of underlying fever and need for antibiotic therapy. The patient did mention overall improvement in his chest pain; it is down to about 3/10 compared to 10/10 when he presented. REVIEW OF SYSTEMS: Positive points have been mentioned in HPI. Rest of the systems are negative. PAST MEDICAL HISTORY: Anxiety. No other chronic illnesses. PAST SURGICAL HISTORY: Right fourth finger amputation. SOCIAL HISTORY: The patient is currently an everyday smoker. The patient denies any new sexual partners and no family members are sick. FAMILY HISTORY: No pertinent findings noticed. ALLERGIES: NO KNOWN DRUG ALLERGIES. MEDICATIONS: The patient is currently on Rocephin 1 gram daily was started today. Motrin, vancomycin, Pharmacy to dose, Protonix, Nitrostat, morphine. PHYSICAL EXAMINATION: Blood pressure is 137/79 with a pulse of 82. Temperature 97.5. He is 100% on room air. General description is a middle-aged male lying in bed in no distress. No tachypnea or accessory muscle of respiration use. HEENT examination shows no pallor or scleral icterus. Oral mucosa membrane is moist. No pharyngeal erythema or thrush. NECK: Trachea is central. No thyromegaly. LUNGS: Unlabored breathing. Clear to auscultation. No wheeze or crackle. HEART: S1, S2. Regular rate and rhythm. ABDOMEN: Soft. No tenderness. No guarding or rigidity. No organomegaly. EXTREMITIES: No edema of the feet. SKIN EXAMINATION: No rash or mass palpable. Neurologically the patient is awake, alert, oriented x3. Mood and affect normal. LABS: Hemoglobin 13.3, white count 12.2. Admission white count was 18.5. BUN of 14, creatinine 0.93. Electrolytes have been normal. Liver enzymes are normal. C- reactive protein is 60.1. Blood culture has been negative so far. DIAGNOSTIC IMPRESSION AND PLAN: Patient with an episode of fever. He presented to hospital. Subsequently no fever has been noticed. The patient's white count was elevated, though has shown a downward trend. The patient's main symptom has been chest pain with some numbness with a question of possible pericarditis, though echocardiogram did not show any evidence of pleural effusion. Chest x-ray was mostly atelectasis. No pneumonia. The patient's abdomen is soft on clinical examination. No UA has been obtained. There is no evidence of any cellulitis. PLAN: 1. keep the patient on vancomycin and Rocephin while waiting for the culture to finalize; however, if the culture remains negative and no obvious clinical focus of infection, antibiotics will be discontinued. 2. Will repeat a chest x-ray in the morning and get a UA and culture to complete the workup. 3. Check an HIV test. 4. Will follow up on clinical condition and culture to further adjust medication if needed. Thank you for this consultation. Will follow this patient along with you. MMODL / IJN: [id number] / MONTSE
--- NOTE | 2019-11-16 19:17 | P.PN ---
Subjective This is a pleasant 59 years old male with past medical history of stroke, anxiety seated smoker. Because of chest pain. Patient was in the hospital but he didn't like its at [place] so he signed himself out. Patient has multiple problems, he is complaining of from numbness in his left face and left arm for 2 days duration with no headache or weakness. Also he said he has been covered with the jenny phlegm and pleuritic-like chest pain on the left side, nonradiating felt like dull increased by deep breathing and coughing associated with some dyspnea but no nausea vomiting. Patient also complains from becoming unresponsive for 2 minutes last night while he was talking to his family, his mother found him unresponsive while she was talking to him, he says that his eyes were closed and he could not remember anything until next day when he woke up and has been told by his mother that she was trying to wake him up and shaking him but he was unresponsive. Patient denies jerking movements, no urine or bowel incontinence, no tongue biting however his mother told him that his eyes rolled up. Also patient was complaining of 422 days of pain in both armpits and both groins Patient smokes about 7-10 cigarettes per day, no alcohol or illicit drugs. Vitas looks stable. Labs showing leukocytosis of 18.5 K, d-dimer is negative at 0.31, BMP is unremarkable. Liver enzymes not elevated, lipase is negative. The frozen is negative. Chest x-ray: Bibasilar atelectasis, less likely pneumonia. EKG showing normal sinus rhythm with no significant ST-T changes. In the emergency room patient got aspirin, Rocephin and IV vancomycin. 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 MRI is suspicious for demylinating disease, EEG is done and is normal, wbc is trending down, no more fever, procalcitonin is mildly elevated, pt remains on antibiotic and culture is pending , crp is elevated but ESR is normal , TSH and creatinine kinase is WNL at 88, apartment maintenance team don't this his problems coming from the heart. t told me he f/u with Jewell Mehta at [phone]. pulmonary input is appreciated. review of systems CONSTITUTIONAL: no malaise, no fatigue. HEENT: No recent visual problems or hearing problems. Denied any sore throat. CARDIOVASCULAR: No orthopnea, PND, no palpitations PULMONARY: no hemoptysis. GASTROINTESTINAL: No diarrhea, no nausea, no vomiting, no abdominal pain. Normoactive bowel sounds. NEUROLOGICAL: No headaches, no weakness HEMATOLOGICAL: Denies any bleeding or petechiae. GENITOURINARY: Denies any burning micturition, frequency, or urgency. MUSCULOSKELETAL/RHEUMATOLOGICAL: Denies any joint pain, swelling, or any muscle pain. ENDOCRINE: Denies any polyuria or polydipsia. Active Medications Generic Name Dose Route Start Last Admin Trade Name Freq PRN Reason Stop Dose Admin Heparin Sodium (Porcine) 0 unit 11/15/19 13:56 11/15/19 21:45 Heparin IV 3,950 unit Q6HR PRN Administration Low PTT Protocol Vancomycin HCl 1,500 mg/ 250 mls @ 125 mls/hr 11/16/19 00:00 11/16/19 16:26 Sodium Chloride IVPB 125 mls/hr Q8HR BECKY Administration Sodium Chloride 1,000 mls @ 75 mls/hr 11/15/19 15:30 11/16/19 19:00 Saline 0.9% IV 75 mls/hr .[id number] BECKY Administration Ceftriaxone Sodium 1 gm/ 50 mls @ 100 mls/hr 11/16/19 14:00 11/16/19 14:11 Sodium Chloride IVPB 100 mls/hr Q24H BECKY Administration Ibuprofen 400 mg 11/16/19 11:15 11/16/19 16:26 Motrin PO 400 mg TID BECKY Administration Miscellaneous Information 0 each 11/17/19 07:00 Vancomycin Trough Due MISCELLANE 11/17/19 07:01 DIRECTED ONE Morphine Sulfate 2 mg 11/15/19 16:47 11/16/19 05:45 Morphine Sulfate (Inj) IVP 2 mg Q4H PRN Administration Pain/Discomfort Nitroglycerin 0.4 mg 11/15/19 13:56 Nitrostat SUBLINGUAL Q5M PRN Chest Pain Pantoprazole Sodium 40 mg 11/16/19 11:15 11/16/19 18:06 Protonix PO Not Given [facility]ID [facility] Objective - Vital Signs Vital signs: Vital Signs Temp 98.2 F 11/16/19 18:53 Pulse 75 11/16/19 18:53 Resp 16 11/16/19 18:53 BP 123/54 11/16/19 18:53 Pulse Ox 98 11/16/19 16:00 Intake & Output 11/16/19 11/16/19 11/17/19 06:59 18:59 06:59 Intake Total 67.911 Balance 67.911 Intake: Intake, IV Titration 67.911 Amount Heparin Sod,Pork in 0.45% 67.911 NaCl 25,000 unit In 0.45 % NaCl 1 250ml.bag @ 12 UNITS/KG/HR 9.498 mls/hr IV .Q24H [facility] Rx#: [id number] Other: Voiding Method Toilet Toilet # Voids 1 3 - Exam GENERAL: The patient is alert and oriented x3, not in any acute distress. Well developed, well nourished. HEENT: Pupils are round and equally reacting to light. EOMI. No scleral icterus. No conjunctival pallor. Normocephalic, atraumatic. No pharyngeal erythema. No thyromegaly. CARDIOVASCULAR: S1 and S2 present. No murmurs, rubs, or gallops. PULMONARY: Chest is clear to auscultation, no wheezing or crackles. ABDOMEN: Soft, nontender, nondistended, normoactive bowel sounds. No palpable organomegaly. -MUSCULOSKELETAL: No joint swelling or deformity. Tenderness in both inguinal hernia and arm parts with no rash or lesions noted EXTREMITIES: No cyanosis, clubbing, or pedal edema. -NEUROLOGICAL: Tenderness are grossly intact, patient has decreased sensation in his left face and left upper extremity. SKIN: No rashes. No petechiae - Labs CBC & Chem 7: 11/16/19 03:22 11/16/19 03:22 Labs: Abnormal Lab Results - Last 24 Hours (Table) 11/15/19 11/15/19 11/16/19 Range/Units 12:46 19:57 03:22 WBC 12.2 H (3.8-10.6) k/uL APTT 30.1 H (22.0-30.0) sec Glucose (74-99) mg/dL Triglycerides (<150) mg/dL Procalcitonin 0.10 H (0.02-0.09) ng/mL 11/16/19 11/16/19 Range/Units 03:22 03:22 WBC (3.8-10.6) k/uL APTT 51.2 H (22.0-30.0) sec Glucose 127 H (74-99) mg/dL Triglycerides 154 H (<150) mg/dL Procalcitonin (0.02-0.09) ng/mL Microbiology - Last 24 Hours (Table) 11/15/19 12:46 Blood Culture - Preliminary Blood No Growth after 24 hours Assessment and Plan Assessment: Bilateral basal atelectasis, versus pneumonia sepsis secondary to above with fever and leukocytosis period Of unresponsive, rule out seizure versus syncope. We'll going to consult cardiology and neurology service Chest pain, rule out cardiac causes Leukocytosis, patient was counseled he does not want nicotine patch Numbness in his left face and left arm Pain in both armpits and groins Nicotine dependence History of anxiety, not active issue. Plan: This is a pleasant 39 years old male who presents because of chest pain and possible pneumonia. pt is been followed by several consultants, including pulmonary , cardiology and neurology , ID team also. Continue with antibiotics. follow-up culture results. Continue with IV hydration. Patient was counseled about she can low that she'll not to drive in case of syncope or seizure Labs and medication were reviewed.. Continue same treatment. Continue with symptomatic treatment. Resume home medication. Monitor lytes and vitals. DVT and GI prophylaxis. Further recommendations of the clinical course of the patient DVT prophylaxis: Subcutaneous heparin GI Prophylaxis: Pepcid PT/OT: Pending Prognosis is guarded
[2019-11-17 01:31] LABS: Cardiolipin Ab IgG Interp NEGATIVE (NEGATIVE); Cardiolipin Ab IgM Interp NEGATIVE (NEGATIVE); Cardiolipin IgM Antibody 6.3 U/mL
[2019-11-17 03:21] LABS: Basophils # (A) 0.1 k/uL (0-0.2); Basophils % (A) 1 %; Eosinophils # (A) 0.3 k/uL (0-0.7); Eosinophils % (A) 3 %; HCT 40.8 % (39.0-53.0); HGB 13.6 gm/dL (13.0-17.5); Lymphocytes # (A) 1.9 k/uL (1.0-4.8); Lymphocytes % (A) 20 %; MCH 31.2 pg (25.0-35.0); MCHC 33.2 g/dL (31.0-37.0); MCV 93.9 fL (80.0-100.0); Mean Platelet Volume 7.2; Monocytes # (A) 0.7 k/uL (0-1.0); Monocytes % (A) 8 %; Neutrophils % (A) 65 %; Platelet Count 241 k/uL (150-450); RBC 4.35 m/uL (4.30-5.90); RDW 13.2 % (11.5-15.5); WBC 9.3 k/uL (3.8-10.6)
[2019-11-17 03:26] LABS: African American GFR (CKD) >90 (>60 ml/min/1.73 sqM); Anion Gap 7 mmol/L; Blood Urea Nitrogen 15 mg/dL (9-20); C Reactive Protein 47.8 mg/L (<10.0); Carbon Dioxide 24 mmol/L (22-30); Chloride 109 mmol/L (98-107); Glucose 113 mg/dL (74-99); Non-African American GFR(CKD) >90 (>60 ml/min/1.73 sqM); Potassium 4.6 mmol/L (3.5-5.1); Sodium 140 mmol/L (137-145)
[2019-11-17] MEDS ORDERED: VANCOMYCIN TROUGH DUE 1 EACH MISC MISCELLANE ONE (07:00)
--- NOTE | 2019-11-17 07:17 | XR ---
EXAMINATION TYPE: XR chest 2V DATE OF EXAM: 11/17/2019 HISTORY: fever. REFERENCE: Previous study dated 11/15/2019. FINDINGS: The lungs are clear. Pleural space are clear. The heart is not enlarged. IMPRESSION: NO ACTIVE CARDIOPULMONARY DISEASE AT THIS TIME.
--- NOTE | 2019-11-17 08:26 | P.PN ---
Progress Note - Text Progress Note Date: 11/17/19 This is a 39-year-old gentleman who was admitted to the hospital was atypical/pleuritic chest discomfort and acute coronary event was ruled out. He was seen this morning. He has been chest pain-free. He denies any shortness of breath, dizziness, heart racing, or syncope. The patient asked me to give him Ativan and I told him to speak with his admitting doctor regarding that. Smoking cessation was discussed with him. From the cardiovascular standpoint of view, the patient can be discharged home.
[2019-11-17] MEDS: IBUPROFEN 400 MG TAB PO SCH ×3 (09:10→22:06)
[2019-11-17] MEDS: PANTOPRAZOLE 40 MG TABLET PO SCH ×2 (09:11→17:07)
[2019-11-17] MEDS: VANCOMYCIN 1,500 MG in SODIUM CHLORIDE 0.9% 250 ML IVPB SCH (09:11)
[2019-11-17 13:57] LABS: Appearance,Urine Clear (Clear); Bilirubin,Urine Negative (Negative); Blood,Urine Negative (Negative); Color,Urine Yellow; Glucose,Urine (UA) Negative (Negative); Ketones,Urine Negative (Negative); Leukocyte Esterase,Urine Negative (Negative); Nitrite,Urine Negative (Negative); Protein,Urine Negative (Negative); Urobilinogen,Urine <2.0 mg/dL (<2.0)
--- NOTE | 2019-11-17 14:03 | P.PN ---
Subjective This is a pleasant 59 years old male with past medical history of stroke, anxiety seated smoker. Because of chest pain. Patient was in the hospital but he didn't like its at [facility] so he signed himself out. Patient has multiple problems, he is complaining of from numbness in his left face and left arm for 2 days duration with no headache or weakness. Also he said he has been covered with the jenny phlegm and pleuritic-like chest pain on the left side, nonradiating felt like dull increased by deep breathing and coughing associated with some dyspnea but no nausea vomiting. Patient also complains from becoming unresponsive for 2 minutes last night while he was talking to his family, his mother found him unresponsive while she was talking to him, he says that his eyes were closed and he could not remember anything until next day when he woke up and has been told by his mother that she was trying to wake him up and shaking him but he was unresponsive. Patient denies jerking movements, no urine or bowel incontinence, no tongue biting however his mother told him that his eyes rolled up. Also patient was complaining of 422 days of pain in both armpits and both groins Patient smokes about 7-10 cigarettes per day, no alcohol or illicit drugs. Vitas looks stable. Labs showing leukocytosis of 18.5 K, d-dimer is negative at 0.31, BMP is unremarkable. Liver enzymes not elevated, lipase is negative. The frozen is negative. Chest x-ray: Bibasilar atelectasis, less likely pneumonia. EKG showing normal sinus rhythm with no significant ST-T changes. In the emergency room patient got aspirin, Rocephin and IV vancomycin. 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 MRI is suspicious for demylinating disease, EEG is done and is normal, wbc is trending down, no more fever, procalcitonin is mildly elevated, pt remains on antibiotic and culture is pending , crp is elevated but ESR is normal , TSH and creatinine kinase is WNL at 88, dairy technician team don't this his problems coming from the heart. t told me he f/u with Jewell Mehta at [phone]. pulmonary input is appreciated. 11/17/2018 Today patient states is a little better regarding his numbness and antegrade on the left side. His pain in his armpit and groins also somewhat better. No more episodes of unresponsiveness or syncope. Chest pain is subsiding and he has no respiratory symptoms. Vitas looks stable. No more fever. WBC is 9.3K. Urinalysis is negative. A in a is negative. Syphilis secreting is negative. TSH and creatinine kinase are negative. C-reactive protein is 60.1 and 47.8. Repeat chest x-ray showing no acute process. Blood culture are still pending. Patient remains on IV antibiotics. Neurological workup still pending, I discussed with the patient his findings and risk of demyelinating disease and he agrees with the workup. Patient was asked to be discharged today, and was explained to him he is not medically stable for discharge, also I explained for the patient the risk of le aving AMA as he did it appear hospital. And he agrees to stay for now Risks including but not limited to worsening neurological disease, loss of function, worsening infection , and/or and he verbalized understanding and based upon my capacity patient has capacity to make medical decision Objective - Vital Signs Vital signs: Vital Signs Temp 98.2 F 11/17/19 10:04 Pulse 71 11/17/19 10:04 Resp 16 11/17/19 10:04 BP 124/67 11/17/19 10:04 Pulse Ox 95 11/17/19 10:04 Intake & Output 11/16/19 11/17/19 11/17/19 18:59 06:59 18:59 Intake Total 300 Balance 300 Intake: Intake, IV Titration 300 Amount Sodium Chloride 0.9% 1, 300 000 ml @ 75 mls/hr IV . [id number] [facility] Rx#:[id number] Other: Voiding Method Toilet Toilet Toilet # Voids 3 2 1 - Exam GENERAL: The patient is alert and oriented x3, not in any acute distress. Well developed, well nourished. HEENT: Pupils are round and equally reacting to light. EOMI. No scleral icterus. No conjunctival pallor. Normocephalic, atraumatic. No pharyngeal erythema. No thyromegaly. CARDIOVASCULAR: S1 and S2 present. No murmurs, rubs, or gallops. PULMONARY: Chest is clear to auscultation, no wheezing or crackles. ABDOMEN: Soft, nontender, nondistended, normoactive bowel sounds. No palpable organomegaly. -MUSCULOSKELETAL: No joint swelling or deformity. Tenderness in both inguinal hernia and arm parts with no rash or lesions noted EXTREMITIES: No cyanosis, clubbing, or pedal edema. -NEUROLOGICAL: Tenderness are grossly intact, patient has decreased sensation in his left face and left upper extremity. SKIN: No rashes. No petechiae - Labs CBC & Chem 7: 11/17/19 02:27 11/17/19 02:27 Labs: Abnormal Lab Results - Last 24 Hours (Table) 11/17/19 Range/Units 02:27 Chloride 109 H (98-107) mmol/L Glucose 113 H (74-99) mg/dL C-Reactive Protein 47.8 H (<10.0) mg/L Microbiology - Last 24 Hours (Table) 11/15/19 12:46 Blood Culture - Preliminary Blood No Growth after 24 hours Assessment and Plan Assessment: Bilateral basal atelectasis, versus pneumonia Possible sepsis secondary to above, versus other with fever and leukocytosis, present on admission period Of unresponsive, rule out seizure versus syncope. We'll going to consult cardiology and neurology service Chest pain, rule out cardiac causes Nicotine dependence, patient was counseled he does not want nicotine patch Numbness in his left face and left arm Pain in both armpits and groins Nicotine dependence History of anxiety, not active issue. Plan: This is a pleasant 39 years old male who presents because of chest pain and possible pneumonia. pt is been followed by several consultants, including pulmonary , cardiology and neurology , ID team also. Continue with antibiotics. follow-up culture results. Continue with IV hydration. Patient was counseled about she can low that she'll not to drive in case of syncope or seizure Labs and medication were reviewed.. Continue same treatment. Continue with symptomatic treatment. Resume home medication. Monitor lytes and vitals. DVT and GI prophylaxis. Further recommendations of the clinical course of the patient DVT prophylaxis: Subcutaneous heparin GI Prophylaxis: Pepcid PT/OT: Pending Prognosis is guarded
[2019-11-17] MEDS: SODIUM CHLORIDE 0.9% 1,000 ML IV SCH ×2 (14:25→19:17)
[2019-11-17] MEDS: HEPARIN SODIUM,PORCINE 5,000 UNIT/ML 1 ML VIAL SQ SCH (22:08)
--- NOTE | 2019-11-18 00:14 | PN ---
PROGRESS NOTE DATE OF SERVICE: 11/17/19. REASON FOR FOLLOW UP: Fever, possible viral syndrome. INTERVAL HISTORY: The patient is currently afebrile, has been breathing comfortably. The patient has been complaining of pain in the right axilla and groin area. Left sided chest pain almost resolved. No nausea, vomiting. No abdominal pain. No diarrhea. PHYSICAL EXAMINATION: Blood pressure 123/69 with a pulse of 76, temperature 98.2. He is 97% on room air. General description is a middle-aged male up in the room in no distress. Respiratory system: Unlabored breathing. Clear to auscultation anteriorly. Heart S1, S2. Regular rate and rhythm. Abdomen soft, no tenderness. LABS: Hemoglobin 13.3, white count 9.3, creatinine 0.93. UA has been negative. Blood culture negative. DIAGNOSTIC IMPRESSION AND PLAN: Patient admitted to the hospital with left-sided chest pain and some numbness to the face and the arm in this patient who did have a fever and elevated white count on presentation that has subsequently resolved. However, no definite clinical focus of infection. Chest x-ray repeat is negative. Urine is negative. Possible viral syndrome. EBV serology has been requested as well HIV which is currently pending and we will monitor clinical course closely. MMODL / IJN: [id number] / MTDD
[2019-11-18 07:26] LABS: Basophils # (A) 0.1 k/uL (0-0.2); Basophils % (A) 1 %; Eosinophils # (A) 0.3 k/uL (0-0.7); Eosinophils % (A) 4 %; HCT 41.2 % (39.0-53.0); HGB 13.6 gm/dL (13.0-17.5); Lymphocytes # (A) 2.5 k/uL (1.0-4.8); Lymphocytes % (A) 27 %; MCHC 33.1 g/dL (31.0-37.0); MCV 93.6 fL (80.0-100.0); Mean Platelet Volume 7.3; Monocytes # (A) 0.6 k/uL (0-1.0); Monocytes % (A) 7 %; Neutrophils # (A) 5.4 k/uL (1.3-7.7); Neutrophils % (A) 59 %; Platelet Count 253 k/uL (150-450); RDW 13.3 % (11.5-15.5); WBC 9.2 k/uL (3.8-10.6)
[2019-11-18 07:35] LABS: African American GFR (CKD) >90 (>60 ml/min/1.73 sqM); Anion Gap 8 mmol/L; Blood Urea Nitrogen 13 mg/dL (9-20); Calcium 8.7 mg/dL (8.4-10.2); Carbon Dioxide 24 mmol/L (22-30); Chloride 108 mmol/L (98-107); Glucose 103 mg/dL (74-99); Non-African American GFR(CKD) >90 (>60 ml/min/1.73 sqM); Potassium 3.8 mmol/L (3.5-5.1); Sodium 140 mmol/L (137-145)
[2019-11-18] MEDS: IBUPROFEN 400 MG TAB PO SCH ×3 (09:20→20:58)
[2019-11-18] MEDS: PANTOPRAZOLE 40 MG TABLET PO SCH ×2 (09:21→17:31)
[2019-11-18] MEDS: HEPARIN SODIUM,PORCINE 5,000 UNIT/ML 1 ML VIAL SQ SCH ×2 (09:21→20:53)
[2019-11-18] MEDS: SODIUM CHLORIDE 0.9% 1,000 ML IV SCH (10:35)
[2019-11-18] MEDS ORDERED: LORazepam 0.5 MG TAB PO ONE (11:59)
[2019-11-18] MEDS ORDERED: LORazepam 0.5 MG TAB PO PRN (12:21)
--- NOTE | 2019-11-18 12:24 | P.PN ---
Subjective This is a pleasant 59 years old male with past medical history of stroke, anxiety seated smoker. Because of chest pain. Patient was in the hospital but he didn't like its at [place] so he signed himself out. Patient has multiple problems, he is complaining of from numbness in his left face and left arm for 2 days duration with no headache or weakness. Also he said he has been covered with the jenny phlegm and pleuritic-like chest pain on the left side, nonradiating felt like dull increased by deep breathing and coughing associated with some dyspnea but no nausea vomiting. Patient also complains from becoming unresponsive for 2 minutes last night while he was talking to his family, his mother found him unresponsive while she was talking to him, he says that his eyes were closed and he could not remember anything until next day when he woke up and has been told by his mother that she was trying to wake him up and shaking him but he was unresponsive. Patient denies jerking movements, no urine or bowel incontinence, no tongue biting however his mother told him that his eyes rolled up. Also patient was complaining of 422 days of pain in both armpits and both groins Patient smokes about 7-10 cigarettes per day, no alcohol or illicit drugs. Vitas looks stable. Labs showing leukocytosis of 18.5 K, d-dimer is negative at 0.31, BMP is unremarkable. Liver enzymes not elevated, lipase is negative. The frozen is negative. Chest x-ray: Bibasilar atelectasis, less likely pneumonia. EKG showing normal sinus rhythm with no significant ST-T changes. In the emergency room patient got aspirin, Rocephin and IV vancomycin. 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 MRI is suspicious for demylinating disease, EEG is done and is normal, wbc is trending down, no more fever, procalcitonin is mildly elevated, pt remains on antibiotic and culture is pending , crp is elevated but ESR is normal , TSH and creatinine kinase is WNL at 88, external relations director team don't this his problems coming from the heart. t told me he f/u with Jewell Mehta at [phone]. pulmonary input is appreciated. 11/17/2019 Today patient states is a little better regarding his numbness and antegrade on the left side. His pain in his armpit and groins also somewhat better. No more episodes of unresponsiveness or syncope. Chest pain is subsiding and he has no respiratory symptoms. Vitas looks stable. No more fever. WBC is 9.3K. Urinalysis is negative. A in a is negative. Syphilis secreting is negative. TSH and creatinine kinase are negative. C-reactive protein is 60.1 and 47.8. Repeat chest x-ray showing no acute process. Blood culture are still pending. Patient remains on IV antibiotics. Neurological workup still pending, I discussed with the patient his findings and risk of demyelinating disease and he agrees with the workup. Patient was asked to be discharged today, and was explained to him he is not medically stable for discharge, also I explained for the patient the risk of le aving AMA as he did it appear hospital. And he agrees to stay for now Risks including but not limited to worsening neurological disease, loss of function, worsening infection , and/or and he verbalized understanding and based upon my capacity patient has capacity to make medical decision 119 11/18/2019 Patient is fully awake and oriented, his numbers are significantly improved and there are minimal as per patient however his weakness in his left hand comes and goes and still there, other symptoms are also improving significantly like his pain in his armpit and groins are improving, no more unresponsiveness, his chest pain almost gone, no other complaint, hysterectomy diet well and is on his IV fluids. Patient was so anxious to go home today because he misses his kids are explained for the patient is medically stable and emotional support is provided for the patient. Due to anxiety patient says that he takes an excellent at home which was prescribed on an as needed basis for 2 days. Discussed with staff After explaining discharge and the patient he told me he does not want to sign AMA and he agrees to stay for now Objective - Vital Signs Vital signs: Vital Signs Temp 98 F 11/18/19 07:42 Pulse 72 11/18/19 11:23 Resp 12 11/18/19 11:23 BP 110/58 11/18/19 07:42 Pulse Ox 98 11/18/19 07:42 Intake & Output 11/17/19 11/18/19 11/18/19 18:59 06:59 18:59 Intake Total 20 350 Balance 20 350 Intake: Intake, IV Titration 350 Amount Sodium Chloride 0.9% 1, 350 000 ml @ 75 mls/hr IV . [id number] [facility] Rx#:[id number] Oral 20 Other: Voiding Method Toilet Toilet Toilet # Voids 1 2 2 # Bowel Movements 1 - Exam GENERAL: The patient is alert and oriented x3, not in any acute distress. Well developed, well nourished. HEENT: Pupils are round and equally reacting to light. EOMI. No scleral icterus. No conjunctival pallor. Normocephalic, atraumatic. No pharyngeal erythema. No thyromegaly. CARDIOVASCULAR: S1 and S2 present. No murmurs, rubs, or gallops. PULMONARY: Chest is clear to auscultation, no wheezing or crackles. ABDOMEN: Soft, nontender, nondistended, normoactive bowel sounds. No palpable organomegaly. -MUSCULOSKELETAL: No joint swelling or deformity. Tenderness in both inguinal hernia and arm parts with no rash or lesions noted EXTREMITIES: No cyanosis, clubbing, or pedal edema. -NEUROLOGICAL: Tenderness are grossly intact, patient has decreased sensation in his left face and left upper extremity. SKIN: No rashes. No petechiae - Labs CBC & Chem 7: 11/18/19 05:57 11/18/19 05:57 Labs: Abnormal Lab Results - Last 24 Hours (Table) 11/18/19 Range/Units 05:57 Chloride 108 H (98-107) mmol/L Glucose 103 H (74-99) mg/dL Microbiology - Last 24 Hours (Table) 11/15/19 12:46 Blood Culture - Preliminary Blood No Growth after 48 hours Assessment and Plan Assessment: Bilateral basal atelectasis, versus pneumonia Possible sepsis secondary to above, versus other with fever and leukocytosis, present on admission period Of unresponsive, rule out seizure versus syncope. We'll going to consult cardiology and neurology service Chest pain, rule out cardiac causes Nicotine dependence, patient was counseled he does not want nicotine patch Numbness in his left face and left arm Pain in both armpits and groins Nicotine dependence History of anxiety, not active issue. Plan: This is a pleasant 39 years old male who presents because of chest pain and possible pneumonia. pt is been followed by several consultants, including pulmonary , cardiology and neurology , ID team also. Continue with antibiotics. follow-up culture results. Continue with IV hydration. Patient was counseled about she can low that she'll not to drive in case of syncope or seizure Labs and medication were reviewed.. Continue same treatment. Continue with symptomatic treatment. Resume home medication. Monitor lytes and vitals. DVT and GI prophylaxis. Further recommendations of the clinical course of the patient DVT prophylaxis: Subcutaneous heparin GI Prophylaxis: Pepcid PT/OT: Pending Prognosis is guarded
--- NOTE | 2019-11-18 23:01 | PN ---
PROGRESS NOTE DATE OF SERVICE: 11/18/2019 REASON FOR FOLLOW UP: Fever, likely viral syndrome. INTERVAL HISTORY: The patient is currently afebrile. Patient is breathing comfortably. The patient denies having any chest pain. No shortness of breath or cough. No nausea, vomiting, abdominal pain, no diarrhea and no pain to the right axilla or the groin area. PHYSICAL EXAMINATION: Blood pressure 125/62 with a pulse of 71, temperature 98.2. He is 98% on room air. General description is a middle-aged male lying in bed in no distress. Respiratory system: Unlabored breathing. Clear to auscultation anteriorly. Heart S1, S2. Regular rate and rhythm. Abdomen soft, no tenderness. LABS: Hemoglobin is 13.1, white count of 9.2. BUN of 13, creatinine 0.75. CMV negative. EBV, HIV is currently pending. Blood culture has been negative. DIAGNOSTIC IMPRESSION AND PLAN: Patient admitted to the hospital with fever, concern for likely viral syndrome as well as cultures and serology so far negative. Waiting for PE and HIV serology on Rocephin which can be safely discontinued on discharge as no evidence of any bacterial infection and monitor his clinical course closely. MMODL / IJN: [id number] /
[2019-11-19] MEDS: SODIUM CHLORIDE 0.9% 1,000 ML IV SCH (00:36)
[2019-11-19 07:53] VITALS: BP 112/65; PULSE 60; RESP 16; TEMP 97.7
[2019-11-19] MEDS: HEPARIN SODIUM,PORCINE 5,000 UNIT/ML 1 ML VIAL SQ SCH (08:08)
[2019-11-19] MEDS: PANTOPRAZOLE 40 MG TABLET PO SCH (08:28)
[2019-11-19] MEDS: IBUPROFEN 400 MG TAB PO SCH (08:28)
--- NOTE | 2019-11-19 12:02 | P.PN ---
Subjective Progress Note Date: 11/19/19 Patient states he is feeling much better. His left-sided numbness and paresthesias has improved significantly last night, and by today it's all gone. No numbness of the left arm and left side of the face. His left hand appears very normal. Denies any weakness anymore. His hypersensitivity in the right axillary region in the right groin has also improved rates 2-3/10. No symptoms in the left axillary region or the left groin. Denies any new neurological symptoms. Patient's ESR is normal 7, CRP elevated 60.1/10. Troponin negative. Liver panel normal renal functions normal. Electrolytes normal. White cells has improved, and now back to normal 9.2 with normal differential. CK is normal 88. Serum angiotensin converting enzyme level is normal 19. CHEO negative, cardiolipin antibodies negative, RPR negative. CMV antibodies and influenza antibodies negative. Lyme titer and HIV testing still pending. Objective - Vital Signs Vital signs: Vital Signs Temp 97.7 F 11/19/19 07:06 Pulse 60 11/19/19 07:06 Resp 16 11/19/19 07:06 BP 112/65 11/19/19 07:06 Pulse Ox 98 11/19/19 07:06 Intake & Output 11/18/19 11/19/19 11/19/19 18:59 06:59 18:59 Intake Total 350 20 Balance 350 20 Intake: Intake, IV Titration 350 Amount Sodium Chloride 0.9% 1, 350 000 ml @ 75 mls/hr IV . [id number] [facility] Rx#:[id number] Oral 20 Other: Voiding Method Toilet Toilet Toilet # Voids 2 2 - Exam Patient's mental status, speech and language functions are normal. Cranial nerves are all normal. Visual roberts are full, face is symmetric. Facial sensation normal. Patient's muscle strength is normal in the arms and legs, including detailed testing of the left upper extremity in the infection preventionist which is back to normal. Reflexes are 1+ to 2 and plantars downgoing. No numbness or sensory loss anymore. No ataxia for [id number] or sghv-[id number] testing. Tone and bulk of muscles normal. - Labs CBC & Chem 7: 11/18/19 05:57 11/18/19 05:57 Labs: Microbiology - Last 24 Hours (Table) 11/15/19 12:46 Blood Culture - Preliminary Blood No Growth after 72 hours Assessment and Plan Assessment: * Probable viral syndrome, characterized with febrile illness, leukocytosis, left facial brachial numbness with left hand weakness, and hyper paresthesias involving the axillary and groin region particularly on the right side. Exact etiology is uncertain although suspect viral syndrome. * MRI of the brain revealed multiple, very small white matter lesions involving the brainstem, cerebellum and a few in the cerebral hemisphere of unclear etiology. Possibly post viral versus demyelinating process. * Syncopal spell Plan: * MRI of the brain with and without contrast revealed no acute infarct. Mild to moderate nonspecific white matter changes somewhat pronounced for patient's chronological age. Demyelinating disease needs to be excluded in the patient of this age, though distribution is not typical. * EEG was normal with no epileptiform activity. * Infectious disease suspecting viral syndrome. * All blood workup negative including CHEO, RPR, antiphospholipid antibodies, angiotensin I converting enzyme level. Lyme titer and HIV are still pending. * Patient neurologically clear. Follow-up in neurology office in 2-4 weeks. May need repeat MRI of the brain in 3-6 months.
[2019-11-19 14:06] LABS: EBV-EA (IgG) 0.5 AI; EBV-EBNA(IgG) >8.0 AI; EBV-VCA (IgG) 6.2 AI; EBV-VCA (IgM) 0.3 AI
--- NOTE | 2019-11-19 14:06 | PN ---
PROGRESS NOTE DATE OF SERVICE: 11/19/2019. REASON FOR FOLLOWUP: Fever, possible viral syndrome. INTERVAL HISTORY: The patient is currently afebrile, has been breathing comfortably. Patient denies having any chest pain or shortness of breath or cough. No nausea, vomiting, abdominal pain, diarrhea. PHYSICAL EXAMINATION: Blood pressure 112/65 with a pulse of 50, temperature 97.7. He is 98% on room air. General description is a middle-aged male up in the room in no distress. RESPIRATORY SYSTEM: Unlabored breathing, clear to auscultation anteriorly. HEART: S1, S2. Regular rate and rhythm. ABDOMEN: Soft, no tenderness. LABS: Blood culture has been negative. EBV and HIV test pending. DIAGNOSTIC IMPRESSION AND PLAN: Patient admitted to the hospital with chest pain and also have a fever, likely viral syndrome. The patient culture has been negative. EBV, HIV still pending for which the patient will follow as an outpatient setting. No need for antibiotic on discharge. Continue with supportive care. MMODL / IJN: [id number] /
[2019-11-19 15:23] LABS: HIV 2 AB Non-Reactive (Non-Reactive); HIV AB P24 Non-Reactive (Non-Reactive); HIV P24 AG Non-Reactive (Non-Reactive)
--- NOTE | 2019-11-21 17:12 | P.DS ---
Providers Date of admission: 11/15/19 14:06 Attending physician: Mukul Gutierrez MD Consults: 11/15/19 13:56 Consult Physician Urgent Consulting Provider: Olivier Mancilla Consult Reason/Comments: chest pain Do you want consulting provider notified?: Yes 11/15/19 15:27 Consult Physician Routine Consulting Provider: Megha Reyes Consult Reason/Comments: numbness in face and arm and possible syncope Do you want consulting provider notified?: Yes Consult Physician Urgent Consulting Provider: Delaney Waters Consult Reason/Comments: pna Do you want consulting provider notified?: Yes 11/16/19 13:48 Consult Physician Urgent Consulting Provider: Petra Streeter Consult Reason/Comments: possible sepsis Do you want consulting provider notified?: Yes Primary care physician: [facility] Course: Diagnoses: Numbness in his left face and left arm, with mild weakness of the left hand. Significantly improved Bilateral basal atelectasis, less likely pneumonia Possible sepsis with fever and leukocytosis, present on admission. Could be related to bronchitis, Improved with antibiotics. Infectious disease was on the case. period Of unresponsive, rule out seizure versus syncope. Evaluated by consult cardiology and neurology service Chest completely resolved with no chest pain over the last 2 days Nicotine dependence, patient was counseled he does not want nicotine patch Pain in both armpits and groins, significantly improved Nicotine dependence History of anxiety, not active issue. Patient was counseled against continuous benzodiazepine use and instructed to taper down with his doctor. F/U outpatient Hospital course: This is a pleasant 59 years old male with past medical history of stroke, anxiety seated smoker. Because of chest pain. Patient was in the hospital but he didn't like its at [place] so he signed himself out. Patient has multiple problems, he is complaining of from numbness in his left face and left arm for 2 days duration with no headache or weakness. Also he said he has been covered with coughing and phlegm and pleuritic-like chest pain on the left side, nonradiating felt like dull increased by deep breathing and coughing associated with some dyspnea but no nausea vomiting. Patient also complains from becoming unresponsive for 2 minutes last night while he was talking to his family, his mother found him unresponsive while she was talking to him, he says that his eyes were closed and he could not remember anything until next day when he woke up and has been told by his mother that she was trying to wake him up and shaking him but he was unresponsive. Patient denies jerking movements, no urine or bowel incontinence, no tongue biting however his mother told him that his eyes rolled up. Also patient was complaining of of pain in both armpits and both groins, which is improved significantly and almost gone upon discharge leukocytosis of 18.5 K came back to normal at 9 point okay with therapy, d-dimer is negative at 0.31, BMP is unremarkable. Liver enzymes not elevated, lipase is negative. Patient has been evaluated by several consultants including cardiology, infectious disease, neurology and pulmonology. His main issue was thought is the numbness in his face and left upper extremity, MRI of the brain shows [id number] nonspecific white matter changes suspicious for demyelinating disease.EEG was negative for epileptiform. Patient was treated with Rocephin and vancomycin, patient has been followed closely by infectious disease specialist. His WBC came back to normal he has no more fever. And his symptoms significantly improved Prior to discharge patient also symptoms are improved significantly except for very mild numbness in his left extremity, his weakness is improved completely as per patient. No chest pain no dyspnea. His pain in the armpits and groins are significantly improved and only minimal. No dizziness or syncope. no abdominal pain or nausea and vomiting , no change in bowel habits. Patient was eager to be discharged home Patient was cleared by all consultants including portrait studio photographer, windows server support technician, neurologist and infectious disease Problems and management plan were discussed with the patient and he verbalized understanding and acceptance Patient was found stable and can be discharged home however he needs follow-up as an outpatient. Patient was instructed to follow up with PCP within one week and patient agrees. Also patient was instructed to follow up with a neurologist and infectious disease as an outpatient. Patient is aware to follow-up with neurologist and Dr. Streeter as well as his PCP Dr. Aleman. also pt agrees with appointment with , pt is aware his office is in [place], [place] and still he intends to f/u , pt is aware he will need repeat MRI as outpt and that his HIV and lyme disease titre were still pending and he needs to f/u with him as outpt, pt is agrees as well with appointment with his pcp Gen: patient is a AAOx3, no distress CVS: S1-S2, RRR, no murmur Lungs: B/L CTA, no wheezing Abdomen: soft, no distention, no tenderness, positive bowel sounds Extremity: no leg edema or induration Neurologic: Cranial nerves are grossly intact. Strength is 5/5 in all extremities including left hand. Sensation is intact. Musculoskeletal: Very minimal tenderness in the armpits and groins significantly improved(he was jumping to touch on admission) Time spent more than 35 minutes Note: Patient admission was denied by his [employer] called the #[phone], extension 1 then 3, I talked with personal on service and he left my contact information with the plan to call me back at the different time as today is Note2: on 11/21 i did peer to peer review with ( not sure of spelling ) from his medical insurance provider and discussed the case with her , all he questions are answered , eventually she stated she will call the hospital Patient Condition at Discharge: Fair Plan - Discharge Summary Discharge Rx Participant: No New Discharge Prescriptions: Continue Atorvastatin [Lipitor] 10 mg PO HS Ibuprofen [Motrin Ib] 800 mg PO Q6H PRN PRN Reason: Pain Discharge Medication List Atorvastatin [Lipitor] 10 mg PO HS 11/15/19 [History] Ibuprofen [Motrin Ib] 800 mg PO Q6H PRN 11/15/19 [History] Follow up Appointment(s)/Referral(s): Jewell Aleman, PIETER [REFERRING] - 11/29/19 10:45 am (Office asks for you to please call once discharged to confirm appointment) Megha Reyes MD [STAFF PHYSICIAN] - 12/04/19 2:30 pm (you may need repeat MRI of the brain to make sure the white matter lesions are not progressing or developing ADEM) Petra Streeter MD [STAFF PHYSICIAN] - As Needed Patient Instructions/Handouts: Chest Pain (DC)
== END 2019-11-19 12:56 | disposition home or self-care (01) ==
LOC: EC 12:21 → OBSVTOIN 14:06 → 1SOBS 14:06 → INTOOBSV 14:06 → 4SSUR 11-17 15:04 → UNDODISIN 11-19 12:56
PROVIDERS: ADMIT Internal Medicine; ATTEND Internal Medicine
DX: R20.0 Anesthesia of skin (principal); R20.2 Paresthesia of skin; R53.1 Weakness; J98.11 Atelectasis; R05 Cough; R07.81 Pleurodynia; R06.00 Dyspnea, unspecified; M79.622 Pain in left upper arm; M79.621 Pain in right upper arm; R07.89 Other chest pain; R50.9 Fever, unspecified; D72.829 Elevated white blood cell count, unspecified; R55 Syncope and collapse; R79.82 Elevated C-reactive protein (CRP); F17.210 Nicotine dependence, cigarettes, uncomplicated; R10.30 Lower abdominal pain, unspecified; K21.9 Gastro-esophageal reflux disease without esophagitis; Z86.59 Personal history of other mental and behavioral disorders; Z86.73 Personal history of transient ischemic attack (TIA), and cerebral infarction without residual deficits; Z89.021 Acquired absence of right finger(s); Z79.899 Other long term (current) drug therapy; Z79.1 Long term (current) use of non-steroidal anti-inflammatories (NSAID); Z80.8 Family history of malignant neoplasm of other organs or systems
CPT/HCPCS: 96372; 96361; 96366 ×3; 96367; 96376 ×3; 96365; 96375; 99285; 36415; 94760; 95819; 93005; 93306; 85379; 86665 ×2; 83880; 80061; 80053; 80048 ×3; 85652; 86663; 84443; 82550; 82164; 83605 ×2; 83690; 83735; 84484 ×2; 85025 ×4; 80202; 85610; 85730 ×2; 86140 ×2; 81003; 87040; 86664; 86618; 86644; 86645; 86780; 86038; 87502; 87390; 86147; 84145; 71046 ×2; 70450; 70553; G0378 ×6; J3370 ×3; J2270 ×3; J1644 ×3; J0696 ×4; J1885; A9585